=== PATIENT | male | born 1960 | race Asian ===

== ENCOUNTER 2024-02-23 10:32 | Day surgery (SDC) | payer OTHER ==
[2024-02-19 10:04] VITALS: BMI 27.7
[2024-02-23 12:25] VITALS: RESP 20; TEMP 97
[2024-02-23 12:44] VITALS: BP 110/68; PULSE 61
== END 2024-02-23 12:40 | disposition home or self-care (01) ==
LOC: FASU-ENDO 10:32
PROVIDERS: ATTEND Internal Medicine Gastroenterology
PROC: 0DBM8ZX Excision of Descending Colon, Via Natural or Artificial Opening Endoscopic, Diagnostic (ICD-10-PCS; 2024-02-23)
PROC: 0DBN8ZX Excision of Sigmoid Colon, Via Natural or Artificial Opening Endoscopic, Diagnostic (ICD-10-PCS; principal; 2024-02-23 11:52)
DX: Z12.11 Encounter for screening for malignant neoplasm of colon (principal); D12.4 Benign neoplasm of descending colon; K63.5 Polyp of colon; Z83.719 Family history of colon polyps, unspecified
CPT/HCPCS: 88305-TC